=== PATIENT | male | born 1955 | race Asian ===

== ENCOUNTER 2016-12-13 09:01 | Emergency (ER) | payer MEDICAID ==
[~2016-12-13] VITALS: Ht 167.6 cm; Wt 72.6 kg
[2016-12-13 09:01] VITALS: BP_SYST 155
[2016-12-13 10:12] LABS: BILIRUBIN,URINE NEGATIVE (NEGATIVE); BLOOD, URINE 3+ (NEGATIVE); CLARITY/URINE HAZY (CLEAR); COLOR,URINE YELLOW (YELLOW); GLUCOSE,URINE NEGATIVE (NEGATIVE); KETONES,URINE NEGATIVE (NEGATIVE); LEUKOCYTE ESTERASE ,URINE 1+ (NEGATIVE); NITRITE, URINE POSITIVE (NEGATIVE); PROTEIN URINE 2+ (NEGATIVE); UROBILINOGEN,URINE 0.2 (0.2-1.0)
[2016-12-13 10:32] LABS: RBC,URINE 20-50 /HPF (0-3)
[2016-12-13 10:33] LABS: BACTERIA,URINE MANY /HPF (None Seen); MUCUS,URINE 1+ /LPF (None Seen)
[2016-12-13 11:29] VITALS: BP_SYST 126
== END 2016-12-13 11:28 | disposition home or self-care (01) ==
LOC: SED 09:01
DX: N39.0 Urinary tract infection, site not specified (principal); I10 Essential (primary) hypertension; Z98.890 Other specified postprocedural states
CPT/HCPCS: 81000-TC; 87086; 87186-TC; 99284